=== PATIENT | female | born 1965 | race Caucasian/White ===

== ENCOUNTER 2023-04-28 19:31 | Emergency (ER) | payer OTHER, SELFPAY ==
[2023-04-28 19:42] VITALS: BP 120/82; PULSE 100; RESP 20; TEMP 36.6; O2SAT 97
[2023-04-28] MEDS: SULFAMETHOXAZOLE/TRIMETHOPRIM 800/160 MG DS TABLET 1 TAB PO (20:00)
--- NOTE | 2023-04-28 20:01 | ED.GENADULT ---
HPI - General Adult General Chief complaint: Skin/Abscess/Foreign Body Stated complaint: Bug Bites Time Seen by Provider: 04/28/23 19:42 Source: patient Mode of arrival: ambulatory Limitations: no limitations History of Present Illness HPI narrative: Patient presents to the emergency room with multiple insect bites amongst both of her legs. Onset (ago): day(s) (1) Location: left, right and lower extremity Radiation: non-radiation Severity: mild Severity scale (1-10): 4 Quality: burning and other (Itchy) Pain Consistency: constant Relieving factors: none Exacerbating factors: none Associated symptoms: denies other symptoms Treatments prior to arrival: none Related Data Home Medications Medication Instructions Recorded Confirmed lisinopril 10 mg tablet 10 mg PO DAILY 04/28/23 04/28/23 metformin 500 mg tablet 1,000 mg PO DAILY 04/28/23 04/28/23 Allergies Allergy/AdvReac Type Severity Reaction Status Date / Time levofloxacin [From Levaquin] Allergy Rash Verified 04/28/23 19:36 Penicillins Allergy Rash Verified 04/28/23 19:36 Review of Systems Constitutional: Constitutional: Reports no additional constitutional complaints, Denies chills, Denies fatigue and Denies fever(s) Cardiovascular: Cardiovascular: Denies chest pain, Denies rapid heart rate and Denies radiating jaw, neck or arm pain Respiratory: Respiratory: Denies chest congestion, Denies cough and Denies dyspnea Gastrointestinal: Gastrointestinal: Denies abdominal pain, Denies bloating and Denies constipation Musculoskeletal: Musculoskeletal: Denies back pain, Denies myalgias and Denies arthralgias Integumentary/Breasts: Skin/Breast: Reports pruritus, Reports erythema and Reports rash Neurologic: Denies confusion, Denies vertigo and Denies dizziness Endocrine: Comments: DM2 Exam Const: General: healthy appearing, no acute distress and alert Nutritional Appearance: well nourished Orientation/consciousness: patient oriented x3 Limitations: no limitations HENMT: Head: normal to inspection, no contusions, no hematomas and no lacerations Eyes: Conjunctivae: conjunctivae normal Pupils: Equal, round and reactive pupils present EOM: EOMs intact bilaterally Neck: Neck: normal visual inspection, no lymphadenopathy and no meningeal signs Chest: Chest palpation & inspection: normal inspection of the chest Resp: Effort & Inspection: normal respiratory effort, not labored, no retractions and not tachypneic Auscultation: clear to auscultation bilaterally, no crackles, no rales and no rhonchi Cardio: Rate: regular rate Rhythm: regular rhythm Heart sounds: no murmurs GI: GI Palp: Yes Soft to palpation, No Tenderness to palpation present (GI), No Guarding due to palpation present (GI) and No Rigid due to palpation Skin: General skin exam: normal color Other: Multiple red circular areas on both legs with central raised nidus of insect bite. Neuro: General: patient oriented x3, moves all extremities and no meningeal signs Extrem: General: normal to inspection, no clubbing, cyanosis or edema and no pedal edema Course Vital Signs Vital signs: Vital Signs Temperature 36.6 C 04/28/23 19:42 Pulse Rate 100 04/28/23 19:42 Respiratory Rate 04/28/23 19:42 Blood Pressure 120/82 04/28/23 19:42 Pulse Oximetry 97 04/28/23 19:42 Oxygen Delivery Room Air 04/28/23 19:42 Temperature 36.6 C 04/28/23 19:42 Pulse Rate 100 04/28/23 19:42 Respiratory Rate 04/28/23 19:42 Blood Pressure 120/82 04/28/23 19:42 Pulse Oximetry 97 04/28/23 19:42 Oxygen Delivery Room Air 04/28/23 19:42 Medical Decision Making Vital Signs Vital Signs: Vital Signs Temperature 36.6 C 04/28/23 19:42 Pulse Rate 100 04/28/23 19:42 Respiratory Rate 04/28/23 19:42 Blood Pressure 120/82 04/28/23 19:42 Pulse Oximetry 97 04/28/23 19:42 Oxygen Delivery Room Air 04/28/23 19:42 Temperature 36.6 C
== END 2023-04-28 20:14 | disposition home or self-care (01) ==
PROVIDERS: Emergency Provider Emergency Medicine; PCP Family Medicine
DX: S80.862A Insect bite (nonvenomous), left lower leg, initial encounter (principal); S80.861A Insect bite (nonvenomous), right lower leg, initial encounter; W57.XXXA Bitten or stung by nonvenomous insect and other nonvenomous arthropods, initial encounter
CPT/HCPCS: 99283; A9270